=== PATIENT | female | born 1990 | race Caucasian/White ===

== ENCOUNTER 2017-11-01 09:24 | Observation (INO) | payer OTHER ==
[~2017-11-01 09:24] MED LIST: ATROPINE 1 MG/10 ML SYRINGE IV; DIPHENHYDRAMINE 50 MG INJ IV; EPHEDrine SULFATE 50 MG/5 ML SYG IV; FENTAnyl 50 MCG/ML VIAL IV; HYDROmorphONE 1 MG/5 ML IV SYRINGE IV; LABETALOL HCL 20MG INJ IV; MIDAZOLAM 1 MG/ML 2 ML INJ IV; ONDANSETRON 4 MG INJ IV; OXYCODONE/ACETAMINOPHEN (5/325) TAB PO; SUCCINYLCHOLINE CHLORIDE 100 MG/5 ML SYG IV; hydrALAzine 20 MG INJ IV; morphine (1 MG/ML) 10ML SYRINGE IV
[2017-11-01 10:14] LABS: ADD MAN DIFF? NO
[2017-11-01 10:18] LABS: WHITE BLOOD COUNT 9.2 10^3/ul (4.8-10.8)
[2017-11-01 10:18] LABS: BASOPHIL # 0.1 10^3/ul (0.0-0.1); BASOPHILS % 0.5 % (0.0-2.0); EOSINOPHILS # 0.1 10^3/ul (0.0-0.5); HEMATOCRIT 36.4 % (37.0-47.0); HEMOGLOBIN 11.6 g/dl (12.0-16.0); LYMPHOCYTES # 2.3 10^3/ul (0.8-2.9); LYMPHOCYTES % 24.7 % (15.0-51.0); MEAN CORPUSCULAR HEMOGLOBIN 25.2 pg (29.0-33.0); MEAN CORPUSCULAR HGB CONC 31.9 g/dl (32.0-37.0); MEAN CORPUSCULAR VOLUME 79.1 fl (82.0-101.0); MEAN PLATELET VOLUME 10.8 fl (7.4-10.4); MONOCYTE # 0.5 10^3/ul (0.3-0.9); MONOCYTES % 4.9 % (0.0-11.0); NEUTROPHIL # 6.3 10^3/ul (1.6-7.5); NEUTROPHILS % 68.5 % (39.0-77.0); PLATELET COUNT 278 10^3/UL (140-415); RED CELL DISTRIBUTION WIDTH 13.9 % (11.5-14.5)
[2017-11-01 10:34] LABS: ALANINE AMINOTRANSFERASE 24 IU/L (13-69); ALBUMIN 4.3 g/dl (3.3-4.9); ALBUMIN/GLOBULIN RATIO 1.13; ALKALINE PHOSPHATASE 70 IU/L (42-121); ANION GAP 18 (8-16); ASPARTATE AMINO TRANSFERASE 20 IU/L (15-46); BILIRUBIN,INDIRECT 0.7 mg/dl (0-1.1); BILIRUBIN,TOTAL 0.7 mg/dl (0.2-1.3); CARBON DIOXIDE 22 mmol/L (21-31); CHLORIDE 108 mmol/L (97-110); GLUCOSE 88 mg/dl (70-220); TOTAL PROTEIN 8.1 g/dl (6.1-8.1)
[2017-11-01 10:38] LABS: BLOOD UREA NITROGEN 7 mg/dl (7-20); CALCIUM 9.1 mg/dl (8.4-10.2); CREATININE 0.59 mg/dl (0.44-1.00); POTASSIUM 3.8 mmol/L (3.5-5.1); SODIUM 144 mmol/L (135-144)
[2017-11-01 10:49] LABS: INR 0.93; PROTIME 12.6 Sec (11.9-14.9)
[2017-11-01 10:59] LABS: PARTIAL THROMBOPLASTIN TIME 36.3 Sec (25.0-35.0)
[2017-11-01] MEDS ORDERED: NEOSTIGMINE 3 MG/3 ML SYRINGE (12:29)
[2017-11-01] MEDS ORDERED: LIDOCAINE 2% (SDV) 5 ML INJ (12:29)
[2017-11-01] MEDS ORDERED: ROCURONIUM 50 MG INJ (12:29)
[2017-11-01] MEDS ORDERED: GLYCOPYRROLATE 0.4 MG INJ (12:29)
[2017-11-01] MEDS ORDERED: PROPOFOL 20 ML (12:29)
[2017-11-01] MEDS ORDERED: FENTAnyl 50 MCG/ML VIAL (12:29)
[2017-11-01] MEDS ORDERED: MIDAZOLAM 1 MG/ML 2 ML INJ (12:29)
[2017-11-01] MEDS ORDERED: ONDANSETRON 4 MG INJ ×2 (12:30→14:26)
[2017-11-01] MEDS ORDERED: DEXAMETHASONE 4 MG/ML 1 ML INJ ×2 (12:30→14:27)
[2017-11-01] MEDS: CEFAZOLIN 2 GM/50 ML (PMX) 50 ML IVPB (13:00)
[2017-11-01] MEDS: SOD CHLORIDE 0.9% 1,000 ML IV (13:00)
[2017-11-01] MEDS ORDERED: LABETALOL HCL 20MG INJ (13:50)
[2017-11-01] MEDS ORDERED: SUGAMMADEX SODIUM 200 MG/2 ML VIAL IV (14:53)
[2017-11-01] MEDS: MEPERIDINE 25 MG INJ IV (15:10)
[2017-11-01] MEDS: FENTAnyl 50 MCG/ML VIAL IV (15:49)
[2017-11-01] MEDS ORDERED: HYDROCODONE/APAP (5/325) TAB PO (16:00)
[2017-11-01] MEDS ORDERED: morphine 2 MG INJ IV (16:00)
[2017-11-01] MEDS ORDERED: ONDANSETRON 4 MG INJ IV (16:00)
[2017-11-01] MEDS: ACETAMINOPHEN 1000MG/100ML IV 100 ML IVPB (16:47)
[2017-11-01] MEDS: D5W-0.45 NACL + KCL 20 MEQ 1,000 ML IV (16:49)
[2017-11-02] MEDS: D5W-0.45 NACL + KCL 20 MEQ 1,000 ML IV ×3 (00:33→08:51)
[2017-11-02] MEDS: ACETAMINOPHEN 1000MG/100ML IV 100 ML IVPB (00:34)
== END 2017-11-02 14:39 | disposition home or self-care (01) ==
LOC: SDS 09:24 → MS1 16:29 → SDS 15:35 → REC 15:35 → MS1 16:33
DX: K80.10 Calculus of gallbladder with chronic cholecystitis without obstruction (principal)
CPT/HCPCS: 47562; 80053; 85025; 85610; 85730; 88304